=== PATIENT | female | born 1990 | race Caucasian/White ===

== ENCOUNTER 2017-06-13 12:55 | Emergency (ER) | payer OTHER ==
--- NOTE | 2017-06-13 15:34 | RAD ---
CERVICAL SPINE 3 VIEWS: Date: 06/13/17 HISTORY: Trauma, neck pain. Right shoulder pain. FINDINGS/IMPRESSION: There is loss of cervical lordosis with straightening of the cervical spine. No acute fracture or sub luxation is identified. If there is focal tenderness, neurologic deficit, or high clinical suspicion for injury to the cervic al spine, further evaluation with CT scan should be performed. POS: [facility]
== END 2017-06-13 14:04 | disposition home or self-care (01) ==
LOC: SCSER 12:55
DX: S43.401A Unspecified sprain of right shoulder joint, initial encounter (principal); V89.2XXA Person injured in unspecified motor-vehicle accident, traffic, initial encounter
CPT/HCPCS: 72040